=== PATIENT | female | born 1940 | race American Indian/Alaskan Native ===

== ENCOUNTER 2016-08-03 10:57 | Outpatient (CLI) | payer MEDICARE ==
[2016-08-03 11:33] LABS: Basophils % (Auto) 1.4 % (0.0-1.8); Eosinophils % (Auto) 2.1 % (0.0-4.3); Hematocrit 43.9 % (30.3-42.9); Hemoglobin 14.5 gm/dl (10.1-14.3); Mean Corpuscular HGB Conc 33 % (30-34); Mean Corpuscular Hemoglobin 29 pg (28-32); Mean Corpuscular Volume 87 fl (79-97); Platelet Count 185 K/mm3 (140-440); Red Blood Count 5.03 M/mm3 (3.65-5.03); Red Cell Distribution Width 15.3 % (13.2-15.2); White Blood Count 7.4 K/mm3 (4.5-11.0)
[2016-08-03 11:41] LABS: INR 0.93 (0.87-1.13)
[2016-08-03 11:42] LABS: Partial Thromboplastin Time 28.7 Sec. (24.2-36.6)
[2016-08-03 11:53] LABS: BUN/Creatinine Ratio 12.66; Calcium 9.6 mg/dL (8.4-10.2); Chloride 99.9 mmol/L (98-107); Potassium 4.4 mmol/L (3.6-5.0)
[2016-08-03] MEDS ORDERED: NACL 0.9% 1000 ML 1,000 ML ONE (12:05)
== END 2016-08-03 10:58 | disposition home or self-care (01) ==
LOC: CT 10:57
PROVIDERS: ATTEND Radiology Vascular & Interventional Radiology
DX: I70.245 Atherosclerosis of native arteries of left leg with ulceration of other part of foot (principal); I70.222 Atherosclerosis of native arteries of extremities with rest pain, left leg; M79.675 Pain in left toe(s)
CPT/HCPCS: 36415; 75635; 80048; 85025; 85610; 85730; J7030; Q9967

== ENCOUNTER 2018-02-01 06:40 | Observation (INO) | payer MEDICARE ==
[2018-02-01] MEDS ORDERED: NACL 0.9% 500 ML 500 ML IV SCH (07:00)
[2018-02-01] MEDS ORDERED: ECOTRIN PO ONE (07:00)
[2018-02-01 07:19] LABS: Hemoglobin 11.8 gm/dl (10.1-14.3); Mean Corpuscular HGB Conc 33 % (30-34); Mean Corpuscular Volume 77 fl (79-97); Platelet Count 217 K/mm3 (140-440); Red Cell Distribution Width 17.8 % (13.2-15.2)
[2018-02-01 07:23] LABS: Mean Corpuscular Hemoglobin 25 pg (28-32)
[2018-02-01 07:29] LABS: Calcium 10.1 mg/dL (8.4-10.2)
[2018-02-01 07:30] LABS: INR 0.91 (0.87-1.13); Partial Thromboplastin Time 29.2 Sec. (24.2-36.6)
[2018-02-01] MEDS ORDERED: BENADRYL IV NR (07:30)
[2018-02-01] MEDS ORDERED: PEPCID IV ONE (07:53)
[2018-02-01] MEDS: PEPCID IV SCH (08:08)
[2018-02-01] MEDS ORDERED: HEPARIN/NS 5000 UNIT/500ML(CATH LAB) 1,000 ML IR ONE (08:09)
[2018-02-01] MEDS: CALAN ONE ×2 (09:25→09:42)
[2018-02-01] MEDS: XYLOCAINE 2% INFILTRATI ONE ×2 (09:25→09:42)
[2018-02-01] MEDS: VERSED ONE ×2 (09:25→09:41)
[2018-02-01] MEDS: SUBLIMAZE ONE ×2 (09:25→09:41)
[2018-02-01] MEDS: HEPARIN 10,000 UNITS/10 ML ONE ×3 (09:25→09:57)
[2018-02-01] MEDS: NITROGLYCERIN SYRINGE 3 ML ONE ×2 (09:29→09:42)
[2018-02-01 09:32] LABS: Anisocytosis 1+; Macrocytosis Few; Platelet Estimate Consistent w Auto; Total Cells Counted 100
[2018-02-01] MEDS ORDERED: AGGRASTAT DRIP (12.5 MG/250 ML) 12,500 MCG/250 ML BAG IV ONE (10:06)
[2018-02-01] MEDS ORDERED: ALUM-MAG HYDROX-SIMETH 200-200-20MG/5ML ONE ×2 (10:55)
[2018-02-01] MEDS ORDERED: PLAVIX ONE (10:55)
[2018-02-01] MEDS ORDERED: ZOFRAN ONE (10:55)
[2018-02-01] MEDS ORDERED: NACL 0.9% 500 ML 500 ML ONE (10:58)
--- NOTE | 2018-02-01 11:16 | Cardiac Catherization Report ---
CARDIAC CATHETERIZATION REFERRING PHYSICIAN: Jean Claude Traylor MD INDICATION FOR PROCEDURE: The patient is a pleasant 77-year-old -[place] female, multiple risk factors including severe peripheral vascular disease, active tobacco abuse, presented with dyspnea on exertion, abnormal stress test with anterior ischemia, abnormal Lexiscan stress test, referred for left heart catheterization. Risks, benefits, and potential transplant length prior to obtaining informed consent. PROCEDURE IN DETAIL: The patient was brought to the catheterization lab in a postabsorptive state, prepped and draped in a sterile fashion. Al's test in right hand was normal. A 2 mL of 2% lidocaine used to anesthetize the right wrist. A standard 6-Trinidadian hydrophilic sheath used to cannulate the right radial artery via modified Seldinger technique. All exchanges performed to exchange a J-tip guidewire. JL3.5 catheter used to engage the left main. No dampening or ventricularization. Cineangiography performed in all projections. JR4 catheter was used to cross the valve under fluoroscopic guidance. Left ventriculography performed in 30 MOSER and 30 MALAYSIAN projections via hand injections, catheter flushed. Manual pullback performed with continuous pressure monitoring. Catheter used to engage the right coronary. No dampening or ventricularization. Cineangiography performed in all projections. Next, catheter removed from the body of wire. DATA: Aortic pressure is 150/70, LV pressure is 150, LVP of 10 mmHg. Left ventriculography revealed normal systolic performance with estimated ejection fraction of 60-65%. No evidence of aortic stenosis. CORONARY ANATOMY: This is a codominant system. Right coronary is a small codominant vessel with a chronic total occlusion proximally with extensive left to right collaterals. Left main is a large vessel with no significant disease, bifurcates left anterior descending and left circumflex. Left circumflex, moderate sized vessel, courses AV groove, gives off a moderate size OM trunk, 50-60% stenosis proximal OM1 trunk to AV groove circ without significant disease. Collaterals to the distal right are noted. Ramus intermedius without significant disease. LAD is a moderate to large vessel, courses anterior interventricular groove, wraps around the apex. There is a 99% proximal LAD stenosis with RIKY 2 flow. It is discrete and very eccentric. There is a very small first diagonal approximately in diameter, which bifurcates. At this point, given her symptoms, abnormal stress test, presence of antianginal, anterior ischemia on stress testing, we proceed with PCI. Additional heparin was given. Abnormal ACT is confirmed. Using EBU 3.5 guide to engage the left main without difficulty. A Prowater wire used to cross the lesion without difficulty. Predilated with a 2.5 x 12 balloon. Next, I used 3.0 x 15 Resolute Integrity at 12 PRABHJOT for 30 seconds. Excellent final angiographic result, very small diagonal was jailed with RIKY 1 flow. The LAD looks good. The patient developed some chest pain due to jailed diagonal. At this point, intravascular ultrasound was also performed. Multiple passes were made reveals a well-opposed and well expanded stent. No complications were noted. I used a Employment Service [employer]ist wire and a Whisper wire, attempted to regain access to the very small diagonal to dotter the lesion is a very small balloon and was able to enter the artery across the stent, but was unable to pass the balloon as the vessel is likely too small. At this point, the procedure was stopped. The patient's chest pain is nearly resolved. I directly supervised the administration of moderate sedation from 9:40 a.m. to 10:50 a.m. CONCLUSIONS: 1. Severe epicardial coronary disease. 99% proximal LAD stenosis, which is likely culprit consistent with anterior ischemia on stress test, multiple antianginal, successful IVUS guided PCI with placement of drug-eluting stent, Resolute 3.0 x 12 with excellent final angiographic and ultrasonographic results. 2. 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 3. No significant disease in the left main. 4. A 50-60% stenosis of OM1. At this point, the patient's chest pain is nearly resolved, very small vessel is jailed, medical management. Aggrastat is initiated. Plavix, aspirin, statin therapy, blood pressure control. The patient is clinically stable at this point. We will continue to watch her, possible discharge in a.m. Remainder of the conclusion is normal left ventricular systolic performance. 5. No evidence of aortic stenosis. JOB# [id number] SBM/NTS
--- NOTE | 2018-02-01 11:50 | Event Note ---
Date: 02/01/18 Post-cath f/u: Pt seen in oppu. She states that she feels a lot better. 07/28 cp - nearly resolved. Repeat ecg unchanged from pre-procedure. Successful pci of prox lad with joaquim. Very small d1 is jailed. Medical management. aggrastat x 8 hrs, asa , plavix. Imdur started. Clinically stable.
[2018-02-01] MEDS ORDERED: AGGRASTAT DRIP (12.5 MG/250 ML) 12,500 MCG/250 ML BAG IV SCH (12:00)
[2018-02-01] MEDS ORDERED: MORPHINE IV ONE (13:00)
[2018-02-01] MEDS: IMDUR PO SCH (13:49)
[2018-02-01] MEDS: COREG PO SCH (22:53)
[2018-02-02 07:43] LABS: Basophils % (Auto) 0.2 % (0.0-1.8); Eosinophils % (Auto) 0.1 % (0.0-4.3); Hematocrit 34.7 % (30.3-42.9); Hemoglobin 11.2 gm/dl (10.1-14.3); Lymphocytes # (Auto) 1.4 K/mm3 (1.2-5.4); Mean Corpuscular HGB Conc 32 % (30-34); Mean Corpuscular Volume 77 fl (79-97); Monocytes # (Auto) 0.7 K/mm3 (0.0-0.8); Monocytes % (Auto) 8.7 % (0.0-7.3); Platelet Count 215 K/mm3 (140-440)
[2018-02-02 07:45] LABS: Mean Corpuscular Hemoglobin 25 pg (28-32)
[2018-02-02 07:47] LABS: Creatine Kinase MB 59.3 ng/mL (0.0-4.0)
[2018-02-02 07:59] LABS: Calcium 9.5 mg/dL (8.4-10.2)
[2018-02-02] MEDS: PEPCID IV SCH ×2 (07:59→10:54)
--- NOTE | 2018-02-02 08:03 | XRay Report ---
AP CHEST: HISTORY: Post PCI AP view of the chest demonstrates a normal mediastinal and cardiac contour with clear lungs and normal bony and soft tissue structures. IMPRESSION: Unremarkable AP chest.
[2018-02-02 09:09] VITALS: BP 154/83
[2018-02-02] MEDS ORDERED: PLAVIX PO SCH (10:00)
[2018-02-02] MEDS ORDERED: ASPIRIN PO SCH (10:00)
[2018-02-02] MEDS ORDERED: COZAAR PO SCH (10:00)
--- NOTE | 2018-02-02 10:45 | Short Stay Summary ---
Short Stay Documentation Date of service: 02/02/18 - History H&P: obtained from office - Allergies and Medications Current Medications: Allergies Penicillins Allergy (Verified 05/25/13 10:31) Rash eggs Allergy (Uncoded 02/01/18 06:58) vomiting, numbness in top of head shrimp Allergy (Uncoded 02/01/18 06:58) throat itching Home Medications Medication Instructions Recorded Confirmed Last Taken Type Aspirin [Baby Aspirin] 81 mg PO ONCE 05/25/13 02/01/18 01/31/18 History 81mg Carvedilol [Coreg] 3.125 mg PO BID 05/25/13 02/01/18 01/31/18 History 3.125mg Losartan [Cozaar] 50 mg PO QDAY 05/25/13 02/01/18 01/31/18 History 50mg Vit D3-Vit K/Berberine/Hops 1 each PO DAILY 05/25/13 02/01/18 01/31/18 History [Ostera Tablet] 1 tab Rosuvastatin Calcium 10 mg PO DAILY 02/01/18 02/01/18 01/31/18 History 10mg Active Medications Aspirin (Aspirin) 325 mg PO QDAY [facility] Carvedilol (Coreg) 3.125 mg PO BID [facility] Last Admin: 02/01/18 22:53 Dose: 3.125 mg Clopidogrel Bisulfate (Plavix) 75 mg PO QDAY [facility] Famotidine (Pepcid) 20 mg IV QDAY [facility] Last Admin: 02/02/18 07:59 Dose: Not Given Isosorbide Mononitrate (Imdur) 30 mg PO QDAY [facility] Last Admin: 02/01/18 13:49 Dose: 30 mg Losartan Potassium (Cozaar) 50 mg PO QDAY [facility] - Physical exam Integumentary: other (right radial LHC site c/d/i with no evidence of bleeding or hematoma ) - Brief post op/procedure progress note Date of procedure: 02/01/18 Pre-op diagnosis: abnormal stress test, chest pain Post-op diagnosis: same Procedure: LHC with PCI - see dictated cath report Anesthesia: local Estimated blood loss: none Condition: stable - Hospital course Hospital course: The pt presented for scheduled elective LHC and subsequently underwent PCI of LAD. She was admitted for observation overnight and remained clinically and hemodynamically stable throughout the procedure and recovery. She is currently medically stable for discharge. - Disposition Condition at discharge: Stable - Discharge Diagnoses (1) CAD (coronary artery disease) Status: Chronic (2) Stented coronary artery Status: Chronic (3) HTN (hypertension) Status: Chronic (4) Hyperlipidemia Status: Chronic (5) PAD (peripheral artery disease) Status: Chronic (6) Former tobacco use Status: Chronic Short Stay Discharge Plan Activity: advance as tolerated Diet: low fat, low cholesterol, low salt Wound: open to air, keep clean and dry, per your surgeon's advice Follow up with: DEMETRICE WATKINS MD [Primary Care Provider] - 7 Days DEVORAH CHRISTOPHER MD [Staff Physician] - 7 Days ([place] office on 02/04/2018 @ 3: 30PM) Prescriptions: Clopidogrel [Plavix] 75 mg PO QDAY #30 tablet ISOSORBIDE MONOnitrate [Imdur ER] 30 mg PO QDAY #30 tablet
[2018-02-02] MEDS: IMDUR PO SCH (10:53)
[2018-02-02] MEDS: COREG PO SCH (10:53)
[2018-02-02 15:35] LABS: Chol/HDL Ratio 2.83 %
[2018-02-03] MEDS ORDERED: PEPCID PO SCH (10:00)
== END 2018-02-02 15:20 | disposition home or self-care (01) ==
LOC: CATHLABREC 06:40 → 4A 11:04
PROVIDERS: ADMIT Internal Medicine; ATTEND Internal Medicine
DX: I25.10 Atherosclerotic heart disease of native coronary artery without angina pectoris (principal); I10 Essential (primary) hypertension; E78.5 Hyperlipidemia, unspecified; I73.9 Peripheral vascular disease, unspecified; Z87.891 Personal history of nicotine dependence
CPT/HCPCS: 36415; 71045; 80048; 80061; 82550; 82553; 82962; 84484; 85007; 85025; 85610; 85730; 92978; 93005; 93010; 93458; 96374; 96375; 96376; C1725; C1753; C1769; C1874; C1887; C1894; C9600; G0378; J1200; J1644; J2250; J2270; J2405; J2930; J3010; J3246; J7040; 92928; 96365; 96366; Q9967